=== PATIENT | female | born 1990 | race Two or more races ===

== ENCOUNTER 2022-02-23 19:38 | Emergency (ER) | payer BC ==
[~2022-02-23] VITALS: Ht 165.1 cm; Wt 63.5 kg
[2022-02-23] MEDS ORDERED: LAMOTRIGINE200 MG PO (19:57)
== END 2022-02-24 01:21 | disposition home or self-care (01) ==
LOC: ER 19:38
DX: G40.109 Localization-related (focal) (partial) symptomatic epilepsy and epileptic syndromes with simple partial seizures, not intractable, without status epilepticus (principal)